=== PATIENT | female | born 1950 | race Caucasian/White ===

== ENCOUNTER → 2018-09-06 | Outpatient (CLI) | payer OTHER ==
[~2018-09-06] MED LIST: CALCIUM OYSTER500 MG PO; CALCIUM PO; DIVIGEL30 GM TD; DULERA 200 MCG/13 GM INH; HYDROCODON-ACE1 EACH PO; IBUPROFEN 200200 M1 PO; LACTAID EXT4500 UNIT PO; MOBIC7.5 MG PO; MUCINEX TA600 MG/TA2 PO; MULTIVITAMINS PO; PREDNISONE50 MG PO; PREVACID30 MG PO; PRILOSEC 10MG C10 M1 PO; PROAIR HFA8.5 GM INH
== END ==
LOC: MRI 09:31
DX: M75.101 Unspecified rotator cuff tear or rupture of right shoulder, not specified as traumatic (principal); M25.811 Other specified joint disorders, right shoulder; M19.011 Primary osteoarthritis, right shoulder